=== PATIENT | female | born 1975 | race Caucasian/White ===

== ENCOUNTER 2019-10-01 23:04 | Emergency (ER) | payer BC, SELFPAY ==
--- NOTE | ~2019-10-01 | XR_ITS ---
EXAMINATION: XR chest 2V DATE: 10/01/2019 23:47 INDICATION: Left-sided chest and shoulder pain TECHNIQUE: PA and lateral views of the chest were obtained. COMPARISON: Chest radiograph dated 05/20/2015 FINDINGS: The lungs remain clear with no focal airspace opacities, pulmonary edema, pleural effusion or pneumot horax. Mild cardiomegaly. Mild thoracic spondylosis with mild anterior wedging of a couple lower thor acic vertebral bodies. IMPRESSION: 1. Mild cardiomegaly. No acute cardiopulmonary disease. Reviewed, dictated and finalized at location A.
[2019-10-01 23:09] VITALS: BP 132/75; PULSE 61; RESP 20; TEMP 37.2; O2SAT 97
--- NOTE | 2019-10-01 23:12 | ECG_ITS ---
Measurements Intervals [place] Rate: 56 P: 30 OR: 172 QRS: 1 QRSD: 101 T: 43 QT: 446 QTc: 431 Interpretive Statements SINUS BRADYCARDIA BASELINE ARTIFACT- II, III, AVF BORDERLINE ECG Electronically Signed On 10-02-2019 7:20:15 CDT by Kehinde Davis D.O.
[2019-10-01] MEDS: ASPIRIN 81 MG CHEWABLE TABLET 324 MG PO (23:16)
[2019-10-01 23:25] VITALS: BP 121/74; PULSE 61; RESP 20; O2SAT 100
[2019-10-01] MEDS: KETOROLAC 30 MG/ML VIAL (*BKC) IV PUSH (23:31)
[2019-10-01 23:55] LABS: Basophils Absolute Auto 0.1 K/mm3 (0.0-0.1); Basophils Percent Auto 0.5 % (0.2-1.2); Eosinophils Absolute Auto 0.2 K/mm3 (0-0.3); Eosinophils Percent Auto 2.3 % (0-4.4); Hematocrit 38.1 % (37.0-47.0); Hemoglobin 12.1 g/dL (12.0-15.0); Immature Granulocyte Absolute 0.03 K/mm3 (0.00-0.031); Immature Granulocyte Percent A 0.3 % (0-0.5); Lymphocytes Absolute Auto 3.37 K/mm3 (0.9-3.2); Mean Corpuscular HGB Conc 31.8 g/dl (32-36); Mean Corpuscular Hemoglobin 28.2 pg (26-34); Mean Corpuscular Volume 88.8 fl (80-100); Mean Platelet Volume 10.5 fl (7.4-10.4); Monocytes Absolute Auto 0.7 K/mm3 (0.1-0.6); Neutrophils Percent Auto 53.9 % (45.5-73.1); Platelet Count Result 444 k/mm3 (150-375); Red Blood Count 4.29 M/mm3 (4.2-5.4); Red Cell Distribution Width 13.7 % (11.5-14.5); White Blood Count 9.4 K/mm3 (4.5-10.0)
[2019-10-01 23:59] LABS: Blood Urea Nitrogen 14 mg/dL (7-17); Calcium 8.5 mg/dL (8.4-10.2); Carbon Dioxide 31 mmol/L (22-30); Chloride 99 mmol/L (98-107); Estimated Glomerular Filt Rate > 60; Glucose 116 mg/dL (65-105); INR 0.9; Partial Thromboplastin Time 28.5 SECONDS (22.3-36.8); Potassium 3.6 mmol/L (3.4-5.0); Prothrombin Time 12.1 Seconds (11.1-14.7); Sodium 136 mmol/L (137-145)
[2019-10-02 00:13] VITALS: BP 115/58; PULSE 57; RESP 20; O2SAT 98
[2019-10-02 00:16] LABS: Troponin I < 0.012 ng/mL (0.000-0.034)
--- NOTE | 2019-10-02 00:33 | ED.GENADULT ---
HPI - General Adult General Chief complaint: Chest Pain Stated complaint: L shoulder pain Time Seen by Provider: 10/01/19 23:17 History of Present Illness HPI narrative: Patient is a 44-year-old female who presents the ER with left shoulder pain. Symptoms began this evening. Worse with turning her head to the right. Has tenderness over left trapezius. Pain is sharp and aching in nature. What made her nervous that she had some right-sided chest pain last night and she is concerned it may be associated. No significant exertional dyspnea. She is without diaphoresis/nausea/vomiting. No history of ischemic cardiac disease. She does have nonischemic cardiomyopathy from obesity. Patient denies any recent trauma. Related Data Allergies Allergy/AdvReac Type Severity Reaction Status Date / Time amlodipine Allergy Unknown cough/benaz Verified 10/01/19 23:13 epril azithromycin Allergy Unknown Nausea Verified 10/01/19 23:13 benazepril [Lotrel] Allergy Unknown cough/benaz Verified 10/01/19 23:13 epril buspirone Allergy Unknown Unknown Verified 10/01/19 23:13 erythromycin base Allergy Unknown Nausea Verified 10/01/19 23:13 paroxetine Allergy Unknown Nausea Verified 10/01/19 23:13 Review of Systems Review of Systems: All systems reviewed & are unremarkable except as noted in HPI and below Constitutional: Constitutional: Denies chills, Denies fever(s) and Denies weakness ENT: Denies nasal congestion and Denies sore throat Cardiovascular: Cardiovascular: Reports chest pain and Denies radiating jaw, neck or arm pain Gastrointestinal: Gastrointestinal: Denies abdominal pain, Denies nausea and Denies vomiting Musculoskeletal: Musculoskeletal: Denies joint swelling and Reports muscle cramps Comments: left shoulder pain PMFSH Past Medical History Medical History (Updated 10/02/19 @ 01:33 by Jose Sims MD) Chronic kidney disease (CKD), stage II (mild) Essential hypertension Hypothyroidism (acquired) Major depressive disorder, recurrent, moderate Mixed anxiety depressive disorder Mixed hyperlipidemia Nonischemic cardiomyopathy cath 2015 echo 2015 ef 35% echo 2016 ef improved 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 Obstructive sleep apnea (adult) (pediatric) Surgical History Surgical History (Updated 10/02/19 @ 00:39 by Jose Sims MD) H/O cardiac catheterization Family History Family History (Updated 06/04/18 @ 08:31 by DOCTOR UNKNOWN) Father Diabetes mellitus Mother Hypertension Family history of malignant neoplasm of breast in first degree relative, Onset Age: 50 Grandparent Acute myocardial infarction, Onset Age: 87 Cerebrovascular accident Family history of malignant neoplasm of breast Social History Social History Smoking status: Never smoker Alcohol intake: never Gender identity (if verbalized by the patient): Female Exam Narrative: Exam Narrative: GENERAL: Well-appearing, obese, and in no acute distress. HEAD: Normocephalic, atraumatic. ENT: Mucous membranes moist. NECK: Supple. Mildly tender to palpation left paraspinal musculatur in the cervical region, and there is palpable spasm and tenderness to the left trapezius near the shoulder. CHEST: Clear to auscultation. No respiratory distress. HEART: Regular rate and rhythm. Normal peripheral pulses. EXTREMITIES: Normal range of motion. No edema. No point tenderness left shoulder. NEURO: Alert and oriented x3. PSYCH: Normal mood and affect. Course Course Emergency Course: Pain markedly improved with Toradol. Informed of results. Discharge home. Vital Signs Vital signs: Vital Signs Temperature 98.9 F 10/01/19 23:09 Pulse Rate 61 10/01/19 23:09 Respiratory Rate 20 10/01/19 23:09 Blood Pressure 132/75 10/01/19 23:09 Pulse Oximetry 97 10/01/19 23:09 Temperature 98.9 F 10/01/19 23:09 Pulse Rate 59 L 10/02/19 01:00 Respiratory Rate 18 10/02/19 01:00 Blood Pressure 106/59 L 10/02/19
[2019-10-02 01:00] VITALS: BP 106/59; PULSE 59; RESP 18; O2SAT 98
[2019-10-02 01:48] VITALS: BP 105/62; PULSE 55; RESP 20; O2SAT 98
== END 2019-10-02 01:50 | disposition home or self-care (01) ==
PROVIDERS: Emergency Provider Emergency Medicine; PCP Family Medicine
DX: M62.830 Muscle spasm of back (principal); I12.9 Hypertensive chronic kidney disease with stage 1 through stage 4 chronic kidney disease, or unspecified chronic kidney disease; N18.2 Chronic kidney disease, stage 2 (mild); E03.9 Hypothyroidism, unspecified; F32.9 Major depressive disorder, single episode, unspecified; F41.9 Anxiety disorder, unspecified; E78.5 Hyperlipidemia, unspecified
CPT/HCPCS: 36415; 71046; 80048; 84484; 85025; 85610; 85730; 93005; 96374; 99284; A9270; J1885